=== PATIENT | male | born 1945 | race African-American/Black ===

== ENCOUNTER 2017-03-09 20:44 | Emergency (ER) | payer MEDICARE, MEDICAID ==
[~2017-03-09] VITALS: Ht 175.3 cm; Wt 75.0 kg
[~2017-03-09 20:44] MED LIST: DETROL; GABA300C PO; GABAPENTIN PO; HYDR-3513 PO; LISINOPRIL; SOMA; VICODIN; ZOLP10TA2 PO
[2017-03-09] MEDS ORDERED: PREDNISONE 20MG TABLET PO STA (22:37)
[2017-03-09] MEDS ORDERED: IPRATROPIUM/ALBUTEROL 0.5-3(2.5)MG/3ML NEB HHN ONE (22:45)
[2017-03-09 23:17] LABS: EOSINOPHILS % 6.5 % (0.0-5.0); HEMATOCRIT. 35.4 % (42.0-52.0); HEMOGLOBIN. 11.6 g/dL (14.0-18.0); LYMPHOCYTES % 43.8 % (20.0-50.0); MEAN CORPUSCULAR HEMOGLOBIN 29.8 pg (28.0-32.0); MEAN CORPUSCULAR HGB CONC 32.7 g/dL (31.0-37.0); MEAN CORPUSCULAR VOLUME 91.2 fL (80.0-94.0); MEAN PLATELET VOLUME 8.6 fl (7.4-10.4); MONOCYTES % 15.1 % (2.0-8.0); NEUTROPHILS % 33.6 % (40.0-76.0); PLATELET 180 x1000/uL (130-400); RED BLOOD CELL COUNT 3.89 mill/uL (4.7-6.1); RED CELL DISTRIBUTION WIDTH 16.1 % (11.6-14.6); WHITE BLOOD COUNT 3.5 x1000/uL (4.5-11.0)
[2017-03-09 23:20] LABS: DIFFERENTIAL COMMENT 1
[2017-03-09 23:23] LABS: INR 1.1
[2017-03-09 23:31] LABS: ALANINE AMINOTRANSFERASE 32 IU/L (13-61); ANION GAP 15; CALCIUM 8.3 mg/dL (8.5-10.1); CARBON DIOXIDE 27 mEq/L (21-32); CHLORIDE 102 mEq/L (98-107); ETHANOL BLOOD 185 mg/dL; INDEX HEMOLYSI 1 (1-3); INDEX ICTERIC 1 (1-4); INDEX LIPEMIC 1 (1-3); LIPASE 100 IU/L (73-393); UREA NITROGEN BLOOD 18 mg/dL (7-21); eGFR > 60 mL/min (>60)
[2017-03-10 00:32] LABS: CLARITY URINE CLEAR (CLEAR); COLOR URINE YELLOW (YELLOW); GLUCOSE URINE NEGATIVE (NEGATIVE); KETONES URINE NEGATIVE (NEGATIVE); LEUKOCYTE ESTERASE URINE 2+ (NEGATIVE); NITRITE URINE NEGATIVE (NEGATIVE); OCCULT BLOOD URINE NEGATIVE (NEGATIVE); PROTEIN URINE NEGATIVE (NEGATIVE); SPECIFIC GRAVITY URINE 1.007 (1.005-1.030); UROBILINOGEN URINE 0.2 E.U./dL (0.2-1.0)
[2017-03-10 01:05] LABS: *AMPHETAMINES SCREEN URINE NEGATIVE (NEGATIVE); *BARBITURATES SCREEN URINE NEGATIVE (NEGATIVE); *BENZODIAZEPINES SCREEN URINE NEGATIVE (NEGATIVE); *COCAINE SCREEN URINE NEGATIVE (NEGATIVE); CANNABINOID URINE SCREEN PRESUMTIVE POSITIVE (NEGATIVE); ECSTASY MDMA SCREEN URINE NEGATIVE (NEGATIVE); METHADONE URINE SCREEN NEGATIVE (NEGATIVE); OPIATES URINE SCREEN PRESUMTIVE POSITIVE (NEGATIVE); PHENCYCLIDINE URINE SCREEN NEGATIVE (NEGATIVE)
[2017-03-10] MEDS ORDERED: METHYLPREDNISOLONE SOD SUCC 125 MG/2 ML VIAL IM STA (01:46)
[2017-03-10] MEDS ORDERED: SODIUM CHLORIDE 0.9% 1,000 ML IV ONE (01:57)
[2017-03-10 02:03] LABS: SQUAMOUS EPITHELIAL CELL URINE FEW /lpf (RARE/1+); WBC URINE 15-25 /hpf (0-2)
[2017-03-10 02:04] LABS: BACTERIA URINE NONE SEEN; RBC URINE 0-2 /hpf (0-2)
[2017-03-10 02:24] LABS: AMMONIA 14 uMol/L (<32); INDEX HEMOLYSI 1 (1-3)
[2017-03-10 06:30] VITALS: BP 161/88
== END 2017-03-10 06:30 | disposition left against medical advice (07) ==
LOC: ER 20:44
DX: R55 Syncope and collapse (principal); J44.9 Chronic obstructive pulmonary disease, unspecified; E11.9 Type 2 diabetes mellitus without complications; I10 Essential (primary) hypertension; F17.210 Nicotine dependence, cigarettes, uncomplicated; Z79.899 Other long term (current) drug therapy
CPT/HCPCS: 36415; 70450; 71010; 73130; 80053; 80305; 81001; 82140; 83690; 84484; 85025; 85610; 93005; 94640; 99285; G0482; J7512; J7030; J7620

== ENCOUNTER 2018-11-14 12:58 | Inpatient (IN) | payer MEDICARE, MEDICAID ==
[~2018-11-14] VITALS: Ht 177.8 cm; Wt 64.4 kg
[2018-11-14] MEDS ORDERED: MORPHINE SULFATE 4 MG/ML CPJ (NOT FOR IM USE) IV STA (13:14)
[2018-11-14] MEDS ORDERED: ONDANSETRON HCL 4MG/2ML INJ IV STA (13:14)
[2018-11-14] MEDS ORDERED: SODIUM CHLORIDE 0.9% 1,000 ML IV ONE (13:14)
[2018-11-14] MEDS ORDERED: TETANUS, DIPHTHERIA, PERTUSSIS VAC/PF 0.5ML (>7YR OLD) IM ONE (13:15)
[2018-11-14 15:27] LABS: CHLORIDE 101 mEq/L (98-107)
[2018-11-14 15:28] LABS: BASOPHILS % 0.9 % (0.0-2.0); EOSINOPHILS % 5.2 % (0.0-5.0); HEMOGLOBIN. 10.4 g/dL (14.0-18.0); LYMPHOCYTES % 30.9 % (20.0-50.0); MEAN CORPUSCULAR HEMOGLOBIN 33.1 pg (28.0-32.0); MEAN CORPUSCULAR VOLUME 98.7 fL (80.0-94.0); MEAN PLATELET VOLUME 10.1 fl (7.4-10.4); MONOCYTES % 9.1 % (2.0-8.0); NEUTROPHILS % 53.9 % (40.0-76.0); PLATELET 99 x1000/uL (130-400); RED BLOOD CELL COUNT 3.15 mill/uL (4.7-6.1); RED CELL DISTRIBUTION WIDTH 17.8 % (11.6-14.6)
[2018-11-14 15:33] LABS: INR 1.2; PROTHROMBIN TIME 11.9 sec (9.1-11.1)
[2018-11-14] MEDS ORDERED: FENTANYL CITRATE/PF 50MCG/ML 2ML VIAL IV ONE (17:15)
[2018-11-14] MEDS ORDERED: GUAIFENESIN 200MG/10ML SUGAR FREE UDC PO PRN (23:00)
[2018-11-14] MEDS ORDERED: TEMAZEPAM 15MG CAPSULE PO PRN (23:00)
[2018-11-14] MEDS ORDERED: ENOXAPARIN 40MG/0.4ML SYR SUBCUT SCH (23:00)
[2018-11-14] MEDS ORDERED: MAGNESIUM/ALUMINUM HYDROXIDE/SIMETHICONE 30ML UDC PO PRN (23:00)
[2018-11-14] MEDS ORDERED: ACETAMINOPHEN 325MG TABLET PO PRN (23:00)
[2018-11-14] MEDS ORDERED: MAGNESIUM HYDROXIDE 400MG/5ML 30ML UDC PO PRN (23:00)
[2018-11-14] MEDS ORDERED: ONDANSETRON HCL 4MG/2ML INJ IV PRN (23:00)
[2018-11-14] MEDS ORDERED: CLONIDINE 0.1MG TABLET PO PRN (23:00)
[2018-11-15] MEDS: MORPHINE SULFATE 4 MG/ML CPJ (NOT FOR IM USE) IV PRN ×3 (01:34→14:58)
[2018-11-15] MEDS ORDERED: KETOROLAC 30MG/ML VIAL IV PRN (01:45)
[2018-11-15 03:00] VITALS: BP 152/82
[2018-11-15 03:15] VITALS: BP 152/82
[2018-11-15 04:00] VITALS: BP_SYST 82
[2018-11-15] MEDS ORDERED: TAMS0.4C31 PO (05:17)
[2018-11-15] MEDS ORDERED: DOCU-272 PO (05:17)
[2018-11-15] MEDS ORDERED: LINA5TAB PO (05:17)
[2018-11-15] MEDS ORDERED: ALBU90AE IH (05:17)
[2018-11-15] MEDS ORDERED: POTA20TA82 PO (05:17)
[2018-11-15] MEDS ORDERED: FERR325T6 PO (05:17)
[2018-11-15] MEDS ORDERED: FURO80TA3 PO (05:17)
[2018-11-15] MEDS ORDERED: LOPHC2 PO (05:17)
[2018-11-15] MEDS ORDERED: MIRT15TA7 PO (05:17)
[2018-11-15] MEDS ORDERED: ATOR10TA69 PO (05:17)
[2018-11-15] MEDS ORDERED: GABA-531 PO (05:17)
[2018-11-15] MEDS ORDERED: FINA5TAB11 PO (05:17)
[2018-11-15] MEDS ORDERED: RANI150C12 PO (05:17)
[2018-11-15] MEDS: SODIUM CHLORIDE 0.9% INJ 3ML FLUSH IVF SCH ×3 (06:23→22:00)
[2018-11-15] MEDS: GABAPENTIN 300MG CAPSULE PO SCH ×3 (06:23→20:55)
[2018-11-15 07:37] VITALS: BP 134/79
[2018-11-15] MEDS: DOCUSATE SODIUM 100MG CAPSULE PO SCH ×2 (09:17→17:00)
[2018-11-15] MEDS ORDERED: PNEUMOCOCCAL 23-VAL P-SAC VAC 0.5 ML IM ONE (12:00)
[2018-11-15] MEDS ORDERED: INFLUENZA VIRUS VACCINE(AFLURIA) 0.5ML SYR IM ONE (12:00)
[2018-11-15 12:18] VITALS: BP 122/73
[2018-11-15 16:09] VITALS: BP 133/75
[2018-11-16 00:01] VITALS: BP 169/93
[2018-11-16 04:00] VITALS: BP 104/79
[2018-11-16] MEDS: GABAPENTIN 300MG CAPSULE PO SCH ×3 (04:45→21:05)
[2018-11-16] MEDS: MORPHINE SULFATE 4 MG/ML CPJ (NOT FOR IM USE) IV PRN ×3 (06:28→20:35)
[2018-11-16] MEDS: SODIUM CHLORIDE 0.9% INJ 3ML FLUSH IVF SCH ×2 (06:29→13:15)
[2018-11-16 08:00] VITALS: BP 108/71
[2018-11-16] MEDS: DOCUSATE SODIUM 100MG CAPSULE PO SCH ×2 (09:03→18:03)
[2018-11-16] MEDS: HYDROCODONE/ACETAMINOPHEN 10/325MG TABLET PO PRN ×2 (09:04→18:02)
[2018-11-16 12:00] VITALS: BP 125/73
[2018-11-16 16:00] VITALS: BP 130/70
[2018-11-16] MEDS ORDERED: DOCUSATE SODIUM 100MG CAPSULE PO SCH (17:00)
[2018-11-16 17:51] LABS: BASOPHILS % 0.3 % (0.0-2.0); EOSINOPHILS % 5.9 % (0.0-5.0); HEMOGLOBIN. 8.6 g/dL (14.0-18.0); LYMPHOCYTES % 25.6 % (20.0-50.0); MEAN CORPUSCULAR HEMOGLOBIN 33.1 pg (28.0-32.0); MEAN CORPUSCULAR VOLUME 99.8 fL (80.0-94.0); MEAN PLATELET VOLUME 9.5 fl (7.4-10.4); NEUTROPHILS % 59.2 % (40.0-76.0); PLATELET 61 x1000/uL (130-400); RED CELL DISTRIBUTION WIDTH 17.5 % (11.6-14.6)
[2018-11-16 20:00] VITALS: BP 119/75
[2018-11-16] MEDS: DIPHENHYDRAMINE 50MG/ML VIAL IV PRN (21:03)
[2018-11-16] MEDS: POLYETHYLENE GLYCOL 3350 (17GM) 1 DOSE PACK PO SCH (21:34)
[2018-11-17] VITALS: BP 120/76
[2018-11-17] MEDS: MORPHINE SULFATE 4 MG/ML CPJ (NOT FOR IM USE) IV PRN ×4 (02:59→21:34)
[2018-11-17 04:00] VITALS: BP 147/88
[2018-11-17] MEDS: GABAPENTIN 300MG CAPSULE PO SCH ×3 (05:15→21:08)
[2018-11-17 05:59] LABS: CHLORIDE 97 mEq/L (98-107)
[2018-11-17 06:01] LABS: BASOPHILS % 0.6 % (0.0-2.0); EOSINOPHILS % 5.4 % (0.0-5.0); HEMATOCRIT. 25.7 % (42.0-52.0); HEMOGLOBIN. 8.8 g/dL (14.0-18.0); LYMPHOCYTES % 24.7 % (20.0-50.0); MEAN CORPUSCULAR HEMOGLOBIN 33.6 pg (28.0-32.0); MEAN CORPUSCULAR VOLUME 98.8 fL (80.0-94.0); MEAN PLATELET VOLUME 9.6 fl (7.4-10.4); MONOCYTES % 9.1 % (2.0-8.0); NEUTROPHILS % 60.2 % (40.0-76.0); PLATELET 67 x1000/uL (130-400)
[2018-11-17 06:35] LABS: FOLIC ACID (FOLATE) SERUM 10.4 ng/mL (>5.38)
[2018-11-17 08:00] VITALS: BP 123/66
[2018-11-17] MEDS: THIAMINE HCL 100MG TABLET PO SCH (08:41)
[2018-11-17] MEDS: FOLIC ACID 1MG TABLET PO SCH (08:41)
[2018-11-17] MEDS: DOCUSATE SODIUM 100MG CAPSULE PO SCH ×2 (08:42→16:50)
[2018-11-17] MEDS ORDERED: CYANOCOBALAMIN 1000MCG/ML VIAL IM NR (10:45)
[2018-11-17] MEDS: LEVOTHYROXINE SODIUM 88MCG TABLET PO SCH (10:51)
[2018-11-17] MEDS: MULTIVITAMINS,THER W-MINERALS TABLET PO SCH (10:51)
[2018-11-17 12:00] VITALS: BP 115/75
[2018-11-17] MEDS: LACTULOSE 20G/30ML UDC PO SCH ×2 (14:57→21:08)
[2018-11-17 16:44] VITALS: BP 123/74
[2018-11-17 20:00] VITALS: BP 150/87
[2018-11-17] MEDS: POLYETHYLENE GLYCOL 3350 (17GM) 1 DOSE PACK PO SCH (21:08)
[2018-11-17] MEDS: DIPHENHYDRAMINE 50MG/ML VIAL IV PRN (21:09)
[2018-11-18] VITALS: BP 116/62
[2018-11-18] MEDS: MORPHINE SULFATE 4 MG/ML CPJ (NOT FOR IM USE) IV PRN ×3 (03:41→13:31)
[2018-11-18 04:00] VITALS: BP 105/84
[2018-11-18 06:13] LABS: T4 FREE 1.37 ng/dL (0.76-1.46)
[2018-11-18] MEDS: LACTULOSE 20G/30ML UDC PO SCH ×2 (06:22→13:30)
[2018-11-18] MEDS: LEVOTHYROXINE SODIUM 88MCG TABLET PO SCH (06:32)
[2018-11-18] MEDS: GABAPENTIN 300MG CAPSULE PO SCH ×3 (06:32→21:25)
[2018-11-18] MEDS: DOCUSATE SODIUM 100MG CAPSULE PO SCH ×2 (09:06→17:08)
[2018-11-18] MEDS: FOLIC ACID 1MG TABLET PO SCH (09:06)
[2018-11-18] MEDS: THIAMINE HCL 100MG TABLET PO SCH (09:06)
[2018-11-18] MEDS: MULTIVITAMINS,THER W-MINERALS TABLET PO SCH (09:06)
[2018-11-18] MEDS: CYANOCOBALAMIN 1000MCG/ML VIAL IM SCH (09:07)
[2018-11-18] MEDS: OXYCODONE HCL 5MG TABLET PO SCH ×2 (17:07→21:26)
[2018-11-18] MEDS: POLYETHYLENE GLYCOL 3350 (17GM) 1 DOSE PACK PO SCH ×2 (21:27→21:34)
[2018-11-18] MEDS: SODIUM CHLORIDE 0.9% INJ 3ML FLUSH IVF SCH (21:27)
[2018-11-19] MEDS: OXYCODONE HCL 5MG TABLET PO SCH ×4 (06:21→22:42)
[2018-11-19] MEDS: LEVOTHYROXINE SODIUM 88MCG TABLET PO SCH (06:21)
[2018-11-19] MEDS: GABAPENTIN 300MG CAPSULE PO SCH ×3 (06:24→22:41)
[2018-11-19 08:00] VITALS: BP 98/55
[2018-11-19] MEDS: DOCUSATE SODIUM 100MG CAPSULE PO SCH (09:00)
[2018-11-19] MEDS ORDERED: LACTULOSE 20G/30ML UDC PO SCH (09:00)
[2018-11-19] MEDS: FOLIC ACID 1MG TABLET PO SCH (09:50)
[2018-11-19] MEDS: CYANOCOBALAMIN 1000MCG/ML VIAL IM SCH (09:50)
[2018-11-19] MEDS: THIAMINE HCL 100MG TABLET PO SCH (09:50)
[2018-11-19] MEDS: MULTIVITAMINS,THER W-MINERALS TABLET PO SCH (09:50)
[2018-11-19] MEDS: MORPHINE SULFATE 4 MG/ML CPJ (NOT FOR IM USE) IV PRN ×3 (09:57→19:57)
[2018-11-19] MEDS ORDERED: DIGOXIN 500MCG/2ML AMP IV NR (11:45)
[2018-11-19] MEDS ORDERED: SODIUM CHLORIDE 0.9% 500 ML IV ONE (11:45)
[2018-11-19 12:00] VITALS: BP 98/56
[2018-11-19 16:00] VITALS: BP 97/51
[2018-11-19] MEDS: SODIUM CHLORIDE 0.9% INJ 3ML FLUSH IVF SCH ×2 (17:01→22:38)
[2018-11-19] MEDS ORDERED: DIGOXIN 250MCG TABLET PO SCH (19:30)
[2018-11-19 19:52] VITALS: BP 110/64
[2018-11-19] MEDS: POTASSIUM CHLORIDE 20MEQ TABLET SR PO SCH ×2 (22:41→23:00)
[2018-11-19] MEDS ORDERED: MAGNESIUM 1 G PREMIX 100 ML IV NR (23:00)
[2018-11-20 00:30] VITALS: BP 114/60
[2018-11-20] MEDS: POTASSIUM CHLORIDE 20MEQ TABLET SR PO SCH (00:33)
[2018-11-20 04:00] VITALS: BP 105/66
[2018-11-20] MEDS: OXYCODONE HCL 5MG TABLET PO SCH ×4 (04:00→21:22)
[2018-11-20] MEDS: SODIUM CHLORIDE 0.9% INJ 3ML FLUSH IVF SCH ×3 (05:45→21:22)
[2018-11-20] MEDS: GABAPENTIN 300MG CAPSULE PO SCH ×4 (05:45→22:00)
[2018-11-20 08:00] VITALS: BP 115/70
[2018-11-20] MEDS: LEVOTHYROXINE SODIUM 88MCG TABLET PO SCH (08:40)
[2018-11-20] MEDS: CYANOCOBALAMIN 1000MCG/ML VIAL IM SCH (08:46)
[2018-11-20] MEDS: FOLIC ACID 1MG TABLET PO SCH (08:46)
[2018-11-20] MEDS: MULTIVITAMINS,THER W-MINERALS TABLET PO SCH (08:46)
[2018-11-20] MEDS: THIAMINE HCL 100MG TABLET PO SCH (08:50)
[2018-11-20 12:00] VITALS: BP 122/71
[2018-11-20 16:00] VITALS: BP 119/72
[2018-11-20] MEDS: DIGOXIN 125MCG TABLET PO SCH (18:33)
[2018-11-20 20:00] VITALS: BP 135/60
[2018-11-21] VITALS (7 sets, daily range): BP systolic 116–142; BP diastolic 56–81
[2018-11-21] MEDS: OXYCODONE HCL 5MG TABLET PO SCH ×4 (04:56→22:10)
[2018-11-21] MEDS: GABAPENTIN 300MG CAPSULE PO SCH ×3 (04:56→22:10)
[2018-11-21] MEDS: SODIUM CHLORIDE 0.9% INJ 3ML FLUSH IVF SCH ×3 (04:56→22:10)
[2018-11-21 07:39] LABS: HEMATOCRIT. 24.3 % (42.0-52.0); HEMOGLOBIN. 8.2 g/dL (14.0-18.0); MEAN CORPUSCULAR VOLUME 98.3 fL (80.0-94.0); MEAN PLATELET VOLUME 9.2 fl (7.4-10.4); PLATELET 79 x1000/uL (130-400); RED BLOOD CELL COUNT 2.48 mill/uL (4.7-6.1); RED CELL DISTRIBUTION WIDTH 17.1 % (11.6-14.6)
[2018-11-21] MEDS: LEVOTHYROXINE SODIUM 88MCG TABLET PO SCH (07:40)
[2018-11-21 09:21] LABS: CHLORIDE 102 mEq/L (98-107)
[2018-11-21 09:27] LABS: PHOSPHORUS 2.3 mg/dL (2.5-4.9)
[2018-11-21 09:45] LABS: DIGOXIN 0.8 ng/mL (0.9-2.0)
[2018-11-21] MEDS: FOLIC ACID 1MG TABLET PO SCH (09:48)
[2018-11-21] MEDS: CYANOCOBALAMIN 1000MCG/ML VIAL IM SCH (09:48)
[2018-11-21] MEDS: THIAMINE HCL 100MG TABLET PO SCH (09:49)
[2018-11-21] MEDS: MULTIVITAMINS,THER W-MINERALS TABLET PO SCH (09:49)
[2018-11-21 14:42] LABS: PLATELET ESTIMATE DECREASED
[2018-11-21] MEDS: DIGOXIN 125MCG TABLET PO SCH (17:13)
[2018-11-22] VITALS: BP 125/64
[2018-11-22 04:00] VITALS: BP 136/84
[2018-11-22] MEDS: GABAPENTIN 300MG CAPSULE PO SCH ×3 (04:51→21:35)
[2018-11-22] MEDS: OXYCODONE HCL 5MG TABLET PO SCH ×4 (04:52→21:36)
[2018-11-22] MEDS: SODIUM CHLORIDE 0.9% INJ 3ML FLUSH IVF SCH ×3 (04:53→21:35)
[2018-11-22 08:00] VITALS: BP 130/75
[2018-11-22] MEDS: LEVOTHYROXINE SODIUM 88MCG TABLET PO SCH (08:30)
[2018-11-22] MEDS: MULTIVITAMINS,THER W-MINERALS TABLET PO SCH (08:58)
[2018-11-22] MEDS: FOLIC ACID 1MG TABLET PO SCH (08:59)
[2018-11-22] MEDS: THIAMINE HCL 100MG TABLET PO SCH (08:59)
[2018-11-22] MEDS: CYANOCOBALAMIN 1000MCG/ML VIAL IM SCH (09:00)
[2018-11-22 12:00] VITALS: BP 121/71
[2018-11-22 16:00] VITALS: BP 144/73
[2018-11-22] MEDS: DIGOXIN 125MCG TABLET PO SCH (18:18)
[2018-11-22 20:00] VITALS: BP 151/80
[2018-11-23] VITALS (7 sets, daily range): BP systolic 124–150; BP diastolic 63–84
[2018-11-23] MEDS: OXYCODONE HCL 5MG TABLET PO SCH ×3 (04:28→15:13)
[2018-11-23] MEDS: SODIUM CHLORIDE 0.9% INJ 3ML FLUSH IVF SCH ×2 (06:06→14:19)
[2018-11-23] MEDS: GABAPENTIN 300MG CAPSULE PO SCH ×2 (06:07→15:13)
[2018-11-23] MEDS: LEVOTHYROXINE SODIUM 88MCG TABLET PO SCH (07:40)
[2018-11-23] MEDS: MULTIVITAMINS,THER W-MINERALS TABLET PO SCH (09:52)
[2018-11-23] MEDS: FOLIC ACID 1MG TABLET PO SCH (09:52)
[2018-11-23] MEDS: THIAMINE HCL 100MG TABLET PO SCH (09:52)
[2018-11-23] MEDS: CYANOCOBALAMIN 1000MCG/ML VIAL IM SCH (09:53)
[2018-11-23] MEDS: DIGOXIN 125MCG TABLET PO SCH (18:00)
[2018-11-23] MEDS ORDERED: QUETIAPINE FUMARATE 50MG TABLET PO SCH (21:00)
== END 2018-11-23 21:30 | DRG 73 ==
LOC: ER 13:18 → 7WST 17:56 → EDBEDREQTM 18:01 → EDBEDREQ 18:01 → ENRESERV 11-15 01:53
PROVIDERS: ADMIT Internal Medicine; ATTEND Internal Medicine
DX: G90.8 Other disorders of autonomic nervous system (principal); E43 Unspecified severe protein-calorie malnutrition; S32.512A Fracture of superior rim of left pubis, initial encounter for closed fracture; D61.818 Other pancytopenia; I47.1 Supraventricular tachycardia; D18.00 Hemangioma unspecified site; E03.9 Hypothyroidism, unspecified; E11.42 Type 2 diabetes mellitus with diabetic polyneuropathy; E87.6 Hypokalemia; I10 Essential (primary) hypertension; J44.9 Chronic obstructive pulmonary disease, unspecified; M17.10 Unilateral primary osteoarthritis, unspecified knee; M47.816 Spondylosis without myelopathy or radiculopathy, lumbar region; M48.02 Spinal stenosis, cervical region; R26.9 Unspecified abnormalities of gait and mobility; M48.061 Spinal stenosis, lumbar region without neurogenic claudication; M50.30 Other cervical disc degeneration, unspecified cervical region; M51.36 Other intervertebral disc degeneration, lumbar region; M51.37 Other intervertebral disc degeneration, lumbosacral region; Z96.643 Presence of artificial hip joint, bilateral; W01.0XXA Fall on same level from slipping, tripping and stumbling without subsequent striking against object, initial encounter; Y93.89 Activity, other specified; Y92.098 Other place in other non-institutional residence as the place of occurrence of the external cause; Y99.8 Other external cause status; Z72.0 Tobacco use; Z79.899 Other long term (current) drug therapy
CPT/HCPCS: 36415; 70551; 71045; 72141; 72146; 72148; 73502; 73552; 73700; 80048; 80051; 80162; 82140; 82607; 82746; 83735; 83880; 84100; 84439; 84443; 84481; 84484; 85651; 86140; 86850; 86900; 90471; 90686; 90715; 90732; 92523; 93005; 93306; 93880; 93970; 96361; 96374; 96375; 97162; 97165; 97530; 97535; 99285; J1160; J1200; J1885; J2270; J2405; J3010; J3420; J3475; J7030; J7040

== ENCOUNTER 2018-12-23 20:22 | Inpatient (IN) | payer MEDICAID, MEDICARE ==
[~2018-12-23] VITALS: Ht 180.3 cm; Wt 70.1 kg
[~2018-12-23 20:22] MED LIST changes: +ALBU90AE IH; +ATOR10TA69 PO; -DETROL; +DOCU-272 PO; +FERR325T6 PO; +FINA5TAB11 PO; +FURO80TA3 PO; +GABA-531 PO; -GABA300C PO; -GABAPENTIN PO; -HYDR-3513 PO; +LINA5TAB PO; -LISINOPRIL; +LOPHC2 PO; +MIRT15TA7 PO; +POTA20TA82 PO; +RANI150C12 PO; -SOMA; +TAMS0.4C31 PO; -VICODIN; -ZOLP10TA2 PO
[2018-12-23] MEDS ORDERED: PIPERACILLIN/TAZ 3.375G PREMIX 50 ML IV ONE (22:30)
[2018-12-23] MEDS ORDERED: ONDANSETRON HCL 4MG/2ML INJ IV STA (22:30)
[2018-12-23] MEDS ORDERED: VANCOMYCIN 1 G PREMIX 200 ML IV SCH (22:30)
[2018-12-23] MEDS ORDERED: MORPHINE SULFATE 4 MG/ML CPJ (NOT FOR IM USE) IV STA (22:30)
[2018-12-23 23:35] LABS: BASOPHILS % 0.2 % (0.0-2.0); EOSINOPHILS % 5.8 % (0.0-5.0); HEMATOCRIT. 30.8 % (42.0-52.0); LYMPHOCYTES % 47.5 % (20.0-50.0); MEAN CORPUSCULAR HEMOGLOBIN 30.6 pg (28.0-32.0); MEAN CORPUSCULAR VOLUME 94.2 fL (80.0-94.0); MEAN PLATELET VOLUME 8.4 fl (7.4-10.4); MONOCYTES % 8.6 % (2.0-8.0); NEUTROPHILS % 37.9 % (40.0-76.0); PLATELET 150 x1000/uL (130-400); RED BLOOD CELL COUNT 3.27 mill/uL (4.7-6.1); RED CELL DISTRIBUTION WIDTH 20.4 % (11.6-14.6)
[2018-12-23 23:38] LABS: CHLORIDE 101 mEq/L (98-107)
[2018-12-23 23:39] LABS: INR 1.1; PARTIAL THROMBOPLASTIN TIME 26.3 sec (23.4-31.0); PROTHROMBIN TIME 11.3 sec (9.1-11.1)
[2018-12-23 23:44] LABS: ETHANOL BLOOD 148 mg/dL
[2018-12-24] MEDS ORDERED: KETOROLAC 30MG/ML VIAL IV ONE (00:30)
[2018-12-24 00:48] LABS: *AMPHETAMINES SCREEN URINE NEGATIVE (NEGATIVE); *BARBITURATES SCREEN URINE NEGATIVE (NEGATIVE); CANNABINOID URINE SCREEN PRESUMTIVE POSITIVE (NEGATIVE); METHADONE URINE SCREEN NEGATIVE (NEGATIVE); OPIATES URINE SCREEN PRESUMTIVE POSITIVE (NEGATIVE); PHENCYCLIDINE URINE SCREEN NEGATIVE (NEGATIVE)
[2018-12-24 00:50] LABS: *BENZODIAZEPINES SCREEN URINE NEGATIVE (NEGATIVE); *COCAINE SCREEN URINE NEGATIVE (NEGATIVE)
[2018-12-24 00:53] LABS: CLARITY URINE CLEAR (CLEAR); COLOR URINE YELLOW (YELLOW); KETONES URINE NEGATIVE (NEGATIVE); LEUKOCYTE ESTERASE URINE NEGATIVE (NEGATIVE); NITRITE URINE NEGATIVE (NEGATIVE); OCCULT BLOOD URINE NEGATIVE (NEGATIVE); PROTEIN URINE NEGATIVE (NEGATIVE); SPECIFIC GRAVITY URINE 1.007 (1.005-1.030); UROBILINOGEN URINE 0.2 E.U./dL (0.2-1.0)
[2018-12-24 04:00] VITALS: BP 153/81
[2018-12-24] MEDS ORDERED: ONDANSETRON HCL 4MG/2ML INJ IV PRN (04:45)
[2018-12-24] MEDS ORDERED: LORAZEPAM 2MG/ML CPJ IV PRN (04:45)
[2018-12-24] MEDS ORDERED: FOLIC ACID 1 MG, MVI, ADULT NO.1 10 ML in DEXTROSE 5% WATER 1,000 ML IV ONE ×3 (05:00)
[2018-12-24 07:53] VITALS: BP 128/68
[2018-12-24] MEDS: ENOXAPARIN 40MG/0.4ML SYR SUBCUT SCH (08:01)
[2018-12-24] MEDS: HYDROCODONE/ACETAMINOPHEN 5/325MG TABLET PO PRN ×3 (08:01→18:18)
[2018-12-24 08:52] LABS: BASOPHILS % 0.5 % (0.0-2.0); EOSINOPHILS % 8.5 % (0.0-5.0); HEMOGLOBIN. 10.5 g/dL (14.0-18.0); LYMPHOCYTES % 40.7 % (20.0-50.0); MEAN CORPUSCULAR HEMOGLOBIN 30.2 pg (28.0-32.0); MEAN CORPUSCULAR VOLUME 94.8 fL (80.0-94.0); MEAN PLATELET VOLUME 8.3 fl (7.4-10.4); MONOCYTES % 11.1 % (2.0-8.0); NEUTROPHILS % 39.2 % (40.0-76.0); PLATELET 132 x1000/uL (130-400); RED BLOOD CELL COUNT 3.48 mill/uL (4.7-6.1); RED CELL DISTRIBUTION WIDTH 20.1 % (11.6-14.6)
[2018-12-24 09:09] LABS: CHLORIDE 96 mEq/L (98-107)
[2018-12-24] MEDS ORDERED: POTASSIUM CHLORIDE 20MEQ TABLET SR PO NR (13:45)
[2018-12-24] MEDS ORDERED: DEXTROSE 50% WATER 50ML SYRINGE IV PRN (14:00)
[2018-12-24 15:04] LABS: BG BASE EXCESS 7.2 mmol/L (-2.0-2.0); BG CARBOXYHEMOGLOBIN 1.1 % (0.5-1.5); BG DEOXYHEMOGLOBIN 7.4 % (0.0-5.0); BG FRACTION INSPIRED OXYGEN 21; BG HCO3 ACT 31.8 mmol/L (22.0-26.0); BG METHEMOGLOBIN 0.3 % (0.0-1.5); BG OXYGEN SATURATION 92.5 % (92.0-98.5); BG OXYHEMOGLOBIN 91.2 % (94.0-97.0); BG PCO2 45.2 mmHg (35.0-45.0); BG PH 7.465 (7.350-7.450); BG PO2 66.9 mmHg (75.0-100.0); BG SAMPLE SITE RIGHT RADIAL; BG TOTAL HEMOGLOBIN 10.6 g/dL (12.0-18.0); BG VENT MODE ROOM AIR
[2018-12-24 16:00] VITALS: BP 149/74
[2018-12-24] MEDS ORDERED: FOLIC ACID 1 MG, MVI, ADULT NO.1 10 ML in DEXTROSE 5% WATER 1,000 ML IV SCH ×3 (16:00)
[2018-12-24] MEDS ORDERED: POTASSIUM CHLORIDE 20MEQ TABLET SR PO SCH (17:00)
[2018-12-24] MEDS: VANCOMYCIN 1 G PREMIX 200 ML IV SCH (17:29)
[2018-12-24] MEDS: TAMSULOSIN HCL 0.4MG SR CAPSULE PO SCH (17:34)
[2018-12-24] MEDS: GABAPENTIN 300MG CAPSULE PO SCH (17:36)
[2018-12-24] MEDS: THIAMINE HCL 100MG TABLET PO SCH (17:36)
[2018-12-24] MEDS: FUROSEMIDE 40MG TABLET PO SCH (17:36)
[2018-12-24] MEDS: INSULIN LISPRO 100 UNITS/ML SUBCUT SCH ×2 (17:47→21:09)
[2018-12-24] MEDS: BLOOD SUGAR DIAGNOSTIC STRIP TEST SCH ×2 (17:47→21:07)
[2018-12-24 20:00] VITALS: BP 125/74
[2018-12-24] MEDS: METOPROLOL TARTRATE 50MG TABLET PO SCH (21:07)
[2018-12-24] MEDS: POTASSIUM CHLORIDE 20MEQ TABLET SR PO SCH (21:07)
[2018-12-24] MEDS: ATORVASTATIN CALCIUM 10MG TABLET PO SCH (21:07)
[2018-12-24] MEDS: MIRTAZAPINE 15MG TABLET PO SCH (21:07)
[2018-12-24] MEDS: FAMOTIDINE 20MG TABLET PO SCH (21:07)
[2018-12-24 23:48] VITALS: BP 147/81
[2018-12-25] MEDS: HYDROCODONE/ACETAMINOPHEN 5/325MG TABLET PO PRN ×2 (03:06→10:05)
[2018-12-25] MEDS: VANCOMYCIN 1 G PREMIX 200 ML IV SCH ×2 (03:11→18:04)
[2018-12-25 04:00] VITALS: BP 144/70
[2018-12-25 06:38] LABS: BASOPHILS % 0.5 % (0.0-2.0); EOSINOPHILS % 7.5 % (0.0-5.0); HEMATOCRIT. 31.1 % (42.0-52.0); HEMOGLOBIN. 10.2 g/dL (14.0-18.0); LYMPHOCYTES % 23.7 % (20.0-50.0); MEAN CORPUSCULAR HEMOGLOBIN 30.9 pg (28.0-32.0); MEAN CORPUSCULAR VOLUME 94.1 fL (80.0-94.0); MEAN PLATELET VOLUME 8.7 fl (7.4-10.4); MONOCYTES % 9.6 % (2.0-8.0); NEUTROPHILS % 58.7 % (40.0-76.0); PLATELET 120 x1000/uL (130-400); RED CELL DISTRIBUTION WIDTH 19.4 % (11.6-14.6)
[2018-12-25] MEDS: BLOOD SUGAR DIAGNOSTIC STRIP TEST SCH ×4 (06:42→20:33)
[2018-12-25 07:22] LABS: CHLORIDE 97 mEq/L (98-107)
[2018-12-25] MEDS: INSULIN LISPRO 100 UNITS/ML SUBCUT SCH ×4 (07:50→20:34)
[2018-12-25 08:00] VITALS: BP 137/78
[2018-12-25] MEDS: METOPROLOL TARTRATE 50MG TABLET PO SCH (09:00)
[2018-12-25] MEDS: FUROSEMIDE 40MG TABLET PO SCH (10:03)
[2018-12-25] MEDS: ENOXAPARIN 40MG/0.4ML SYR SUBCUT SCH (10:03)
[2018-12-25] MEDS: FINASTERIDE 5MG TABLET PO SCH (10:04)
[2018-12-25] MEDS: THIAMINE HCL 100MG TABLET PO SCH (10:04)
[2018-12-25] MEDS: POTASSIUM CHLORIDE 20MEQ TABLET SR PO SCH ×2 (10:04→16:27)
[2018-12-25] MEDS: GABAPENTIN 300MG CAPSULE PO SCH ×2 (10:04→16:27)
[2018-12-25] MEDS: TAMSULOSIN HCL 0.4MG SR CAPSULE PO SCH ×2 (10:04→16:27)
[2018-12-25] MEDS: FAMOTIDINE 20MG TABLET PO SCH ×2 (10:05→20:33)
[2018-12-25] MEDS: FOLIC ACID 1 MG, MVI, ADULT NO.1 10 ML in DEXTROSE 5% WATER 1,000 ML IV SCH ×3 (11:49)
[2018-12-25 12:00] VITALS: BP 143/79
[2018-12-25] MEDS: HYDROCODONE/APAP 7.5/325MG 1 TAB TABLET PO PRN ×2 (14:09→20:33)
[2018-12-25 16:00] VITALS: BP 161/83
[2018-12-25] MEDS: DILTIAZEM HCL 30MG TABLET PO SCH (18:19)
[2018-12-25 20:00] VITALS: BP 145/84
[2018-12-25] MEDS: MIRTAZAPINE 15MG TABLET PO SCH (20:33)
[2018-12-25] MEDS: ATORVASTATIN CALCIUM 10MG TABLET PO SCH (20:33)
[2018-12-25] MEDS ORDERED: MAGNESIUM 1 G PREMIX 100 ML IV NR (22:00)
[2018-12-25 23:02] LABS: BASOPHILS % 0.4 % (0.0-2.0); EOSINOPHILS % 6.6 % (0.0-5.0); HEMATOCRIT. 30.2 % (42.0-52.0); LYMPHOCYTES % 28.1 % (20.0-50.0); MEAN CORPUSCULAR HEMOGLOBIN 31.1 pg (28.0-32.0); MEAN CORPUSCULAR VOLUME 94.4 fL (80.0-94.0); MEAN PLATELET VOLUME 8.6 fl (7.4-10.4); MONOCYTES % 8.8 % (2.0-8.0); NEUTROPHILS % 56.1 % (40.0-76.0); PLATELET 114 x1000/uL (130-400); RED CELL DISTRIBUTION WIDTH 19.6 % (11.6-14.6)
[2018-12-25 23:10] LABS: CHLORIDE 97 mEq/L (98-107)
[2018-12-26] VITALS: BP 143/71
[2018-12-26 04:00] VITALS: BP 146/77
[2018-12-26] MEDS: HYDROCODONE/APAP 7.5/325MG 1 TAB TABLET PO PRN ×3 (04:13→16:27)
[2018-12-26] MEDS: DILTIAZEM HCL 30MG TABLET PO SCH ×4 (05:55→17:36)
[2018-12-26] MEDS: VANCOMYCIN 1 G PREMIX 200 ML IV SCH (05:55)
[2018-12-26 06:21] LABS: CHLORIDE 99 mEq/L (98-107)
[2018-12-26 06:23] LABS: BASOPHILS % 0.5 % (0.0-2.0); EOSINOPHILS % 8.1 % (0.0-5.0); HEMATOCRIT. 30.3 % (42.0-52.0); HEMOGLOBIN. 9.9 g/dL (14.0-18.0); MEAN CORPUSCULAR HEMOGLOBIN 30.9 pg (28.0-32.0); MEAN CORPUSCULAR VOLUME 94.1 fL (80.0-94.0); MONOCYTES % 9.6 % (2.0-8.0); NEUTROPHILS % 55.8 % (40.0-76.0); PLATELET 121 x1000/uL (130-400); RED BLOOD CELL COUNT 3.22 mill/uL (4.7-6.1); RED CELL DISTRIBUTION WIDTH 19.9 % (11.6-14.6)
[2018-12-26] MEDS: BLOOD SUGAR DIAGNOSTIC STRIP TEST SCH ×4 (07:20→21:00)
[2018-12-26] MEDS: INSULIN LISPRO 100 UNITS/ML SUBCUT SCH ×4 (07:39→21:00)
[2018-12-26 08:00] VITALS: BP 138/72
[2018-12-26] MEDS: FOLIC ACID 1 MG, MVI, ADULT NO.1 10 ML in DEXTROSE 5% WATER 1,000 ML IV SCH ×6 (09:00→12:00)
[2018-12-26] MEDS: TAMSULOSIN HCL 0.4MG SR CAPSULE PO SCH ×2 (09:03→16:27)
[2018-12-26] MEDS: POTASSIUM CHLORIDE 20MEQ TABLET SR PO SCH ×2 (09:03→16:27)
[2018-12-26] MEDS: GABAPENTIN 300MG CAPSULE PO SCH ×2 (09:03→16:26)
[2018-12-26] MEDS: ENOXAPARIN 40MG/0.4ML SYR SUBCUT SCH (09:04)
[2018-12-26] MEDS: ASPIRIN 81MG EC TABLET PO SCH (09:04)
[2018-12-26] MEDS: METOPROLOL TARTRATE 25MG TABLET PO SCH (09:04)
[2018-12-26] MEDS: FAMOTIDINE 20MG TABLET PO SCH ×2 (09:04→22:14)
[2018-12-26] MEDS: THIAMINE HCL 100MG TABLET PO SCH (09:04)
[2018-12-26] MEDS: FINASTERIDE 5MG TABLET PO SCH (09:13)
[2018-12-26 12:00] VITALS: BP 155/80
[2018-12-26 16:00] VITALS: BP 140/83
[2018-12-26 20:00] VITALS: BP 145/76
[2018-12-26] MEDS: ATORVASTATIN CALCIUM 10MG TABLET PO SCH (22:14)
[2018-12-26] MEDS: MIRTAZAPINE 15MG TABLET PO SCH (22:15)
[2018-12-27] VITALS (9 sets, daily range): BP systolic 141–165; BP diastolic 71–88
[2018-12-27] MEDS: DILTIAZEM HCL 30MG TABLET PO SCH ×2 (03:07→06:00)
[2018-12-27] MEDS: HYDROCODONE/APAP 7.5/325MG 1 TAB TABLET PO PRN ×3 (03:38→18:22)
[2018-12-27] MEDS: VANCOMYCIN 1 G PREMIX 200 ML IV SCH ×2 (04:22→21:25)
[2018-12-27] MEDS: BLOOD SUGAR DIAGNOSTIC STRIP TEST SCH ×4 (06:54→21:00)
[2018-12-27] MEDS: INSULIN LISPRO 100 UNITS/ML SUBCUT SCH ×4 (07:33→21:00)
[2018-12-27] MEDS: ASPIRIN 81MG EC TABLET PO SCH (09:18)
[2018-12-27] MEDS: TAMSULOSIN HCL 0.4MG SR CAPSULE PO SCH ×2 (09:18→18:17)
[2018-12-27] MEDS: POTASSIUM CHLORIDE 20MEQ TABLET SR PO SCH ×2 (09:18→18:17)
[2018-12-27] MEDS: METOPROLOL TARTRATE 25MG TABLET PO SCH (09:20)
[2018-12-27] MEDS: FOLIC ACID 1 MG, MVI, ADULT NO.1 10 ML in DEXTROSE 5% WATER 1,000 ML IV SCH ×3 (09:20)
[2018-12-27] MEDS: GABAPENTIN 300MG CAPSULE PO SCH ×2 (09:20→18:17)
[2018-12-27] MEDS: FINASTERIDE 5MG TABLET PO SCH (09:20)
[2018-12-27] MEDS: FAMOTIDINE 20MG TABLET PO SCH ×2 (09:20→21:18)
[2018-12-27] MEDS: ENOXAPARIN 40MG/0.4ML SYR SUBCUT SCH (09:22)
[2018-12-27] MEDS ORDERED: ENALAPRIL 2.5MG/2ML VIAL 2ML IV PRN (14:00)
[2018-12-27] MEDS ORDERED: ENALAPRIL 1.25MG/ML VIAL 1ML IV NR (14:00)
[2018-12-27] MEDS ORDERED: ENALAPRIL 1.25MG/ML VIAL 1ML IV PRN (14:15)
[2018-12-27] MEDS: MIRTAZAPINE 15MG TABLET PO SCH (21:18)
[2018-12-27] MEDS: ATORVASTATIN CALCIUM 10MG TABLET PO SCH (21:18)
[2018-12-28] MEDS: HYDROCODONE/APAP 7.5/325MG 1 TAB TABLET PO PRN ×2 (02:37→10:26)
[2018-12-28 04:00] VITALS: BP 154/76
[2018-12-28] MEDS: INSULIN LISPRO 100 UNITS/ML SUBCUT SCH ×2 (07:40→12:31)
[2018-12-28] MEDS: BLOOD SUGAR DIAGNOSTIC STRIP TEST SCH ×2 (07:40→12:31)
[2018-12-28 08:00] VITALS: BP 158/78
[2018-12-28] MEDS: METOPROLOL TARTRATE 25MG TABLET PO SCH (08:44)
[2018-12-28] MEDS: FAMOTIDINE 20MG TABLET PO SCH (08:55)
[2018-12-28] MEDS: FINASTERIDE 5MG TABLET PO SCH (08:55)
[2018-12-28] MEDS: ASPIRIN 81MG EC TABLET PO SCH (08:55)
[2018-12-28] MEDS: POTASSIUM CHLORIDE 20MEQ TABLET SR PO SCH (08:55)
[2018-12-28] MEDS: TAMSULOSIN HCL 0.4MG SR CAPSULE PO SCH (08:55)
[2018-12-28] MEDS: ENOXAPARIN 40MG/0.4ML SYR SUBCUT SCH (08:56)
[2018-12-28] MEDS: GABAPENTIN 300MG CAPSULE PO SCH (08:56)
[2018-12-28 12:28] VITALS: BP 142/73
[2018-12-28 13:47] VITALS: BP 142/73
== END 2018-12-28 15:05 | disposition home or self-care (01) | DRG 602 ==
LOC: ER 20:22 → 6WST 12-24 00:04 → EDBEDREQ 12-24 00:10 → EDBEDREQTM 12-24 00:10 → EDBEDREQDT 12-24 00:10 → ENRESERV 12-24 01:48
PROVIDERS: ADMIT Internal Medicine; ATTEND Internal Medicine
DX: L03.115 Cellulitis of right lower limb (principal); J18.9 Pneumonia, unspecified organism; D61.818 Other pancytopenia; R65.10 Systemic inflammatory response syndrome (SIRS) of non-infectious origin without acute organ dysfunction; I47.2 Ventricular tachycardia; J44.0 Chronic obstructive pulmonary disease with (acute) lower respiratory infection; E87.3 Alkalosis; L03.116 Cellulitis of left lower limb; E03.9 Hypothyroidism, unspecified; N40.0 Benign prostatic hyperplasia without lower urinary tract symptoms; F17.210 Nicotine dependence, cigarettes, uncomplicated; E78.5 Hyperlipidemia, unspecified; R09.02 Hypoxemia; F10.229 Alcohol dependence with intoxication, unspecified; I11.9 Hypertensive heart disease without heart failure; E11.40 Type 2 diabetes mellitus with diabetic neuropathy, unspecified; M50.80 Other cervical disc disorders, unspecified cervical region; M48.02 Spinal stenosis, cervical region; I87.8 Other specified disorders of veins; M19.90 Unspecified osteoarthritis, unspecified site; F32.9 Major depressive disorder, single episode, unspecified; F29 Unspecified psychosis not due to a substance or known physiological condition; R00.1 Bradycardia, unspecified; Z96.643 Presence of artificial hip joint, bilateral; Z91.81 History of falling
CPT/HCPCS: 36415; 36600; 71045; 80048; 80202; 80305; 82375; 82805; 82962; 83036; 83525; 83605; 83735; 83880; 84484; 93005; 93923; 93970; 96374; 97162; 99285; C1893; J1650; J1815; J1885; J2270; J2405; J2543; J3370; J3475; J3490; J7040; J7050; J7070

== ENCOUNTER 2019-01-15 16:08 | Emergency (ER) | payer MEDICARE ==
[~2019-01-15] VITALS: Ht 180.3 cm; Wt 80.0 kg
[2019-01-15 16:15] VITALS: BP 136/85
== END 2019-01-15 19:14 | disposition left against medical advice (07) ==
LOC: ER 16:31
DX: M79.604 Pain in right leg (principal); Z53.21 Procedure and treatment not carried out due to patient leaving prior to being seen by health care provider

== ENCOUNTER 2020-04-28 23:32 | Emergency (ER) | payer MEDICARE ==
[~2020-04-28] VITALS: Ht 182.9 cm; Wt 80.0 kg
[2020-04-29 01:32] VITALS: BP 144/84
== END 2020-04-29 01:40 | disposition home or self-care (01) ==
LOC: ER 23:32
DX: T51.0X1A Toxic effect of ethanol, accidental (unintentional), initial encounter (principal); G92 Toxic encephalopathy; F10.129 Alcohol abuse with intoxication, unspecified; Y90.9 Presence of alcohol in blood, level not specified; Y92.521 Bus station as the place of occurrence of the external cause; R03.0 Elevated blood-pressure reading, without diagnosis of hypertension
CPT/HCPCS: 99283

== ENCOUNTER 2022-02-19 15:50 | Inpatient (IN) | payer MEDICARE, MEDICAID ==
[~2022-02-19] VITALS: Ht 180.3 cm; Wt 68.5 kg
[~2022-02-19 15:50] MED LIST changes: +DOCU-268 PO; -DOCU-272 PO; -GABA-531 PO; +GABA-532 PO
[2022-02-19] MEDS ORDERED: SODIUM CHLORIDE 0.9% 250 ML IV ONE (16:15)
[2022-02-19 16:24] LABS: HEMATOCRIT. 34.2 % (42.0-52.0); HEMOGLOBIN. 11.1 g/dL (14.0-18.0); PLATELET 191 x1000/uL (130-400); RED BLOOD CELL COUNT 3.98 mill/uL (4.7-6.1); RED CELL DISTRIBUTION WIDTH 24.1 % (11.6-14.6)
[2022-02-19 16:29] LABS: CHLORIDE 108 mEq/L (98-107)
[2022-02-19 17:03] LABS: PLATELET ESTIMATE NORMAL
[2022-02-19] MEDS ORDERED: PIPERACILLIN/TAZ 3.375G PREMIX 50 ML IV NR (17:15)
[2022-02-19] MEDS ORDERED: SODIUM CHLORIDE 0.9% 1000ML BAG (SEPSIS BOLUS) IV NR (17:15)
[2022-02-19 19:25] LABS: CLARITY URINE CLEAR (CLEAR); COLOR URINE YELLOW (YELLOW); KETONES URINE NEGATIVE (NEGATIVE); LEUKOCYTE ESTERASE URINE 1+ (NEGATIVE); NITRITE URINE NEGATIVE (NEGATIVE); OCCULT BLOOD URINE NEGATIVE (NEGATIVE); PH URINE 7.5 (4.5-8.0); PROTEIN URINE 1+ (NEGATIVE); SPECIFIC GRAVITY URINE 1.019 (1.005-1.030); UROBILINOGEN URINE 0.2 E.U./dL (0.2-1.0)
[2022-02-19] MEDS ORDERED: CLONIDINE 0.1MG TABLET PO PRN (19:45)
[2022-02-19] MEDS ORDERED: ACETAMINOPHEN 325MG TABLET PO PRN (19:45)
[2022-02-19] MEDS ORDERED: ONDANSETRON HCL 4MG/2ML INJ IV PRN (19:45)
[2022-02-19] MEDS ORDERED: GUAIFENESIN 200MG/10ML SUGAR FREE UDC PO PRN (19:45)
[2022-02-19] MEDS ORDERED: DOCUSATE SODIUM 100MG CAPSULE PO PRN (19:45)
[2022-02-19] MEDS ORDERED: IOHEXOL-300 100 ML BOTTLE ONE (20:08)
[2022-02-19] MEDS: ENOXAPARIN 40MG/0.4ML SYR SUBCUT SCH ×2 (21:00→21:14)
[2022-02-19] MEDS: HYDROCODONE/ACETAMINOPHEN 5/325MG TABLET PO PRN (21:14)
[2022-02-19] MEDS: AMLODIPINE 10MG TABLET PO SCH (21:22)
[2022-02-20] MEDS: HYDROCODONE/ACETAMINOPHEN 5/325MG TABLET PO PRN ×5 (02:25→23:42)
[2022-02-20 05:06] LABS: BASOPHILS % 0.8 % (0.0-2.0); EOSINOPHILS % 2.9 % (0.0-5.0); HEMATOCRIT. 36.4 % (42.0-52.0); HEMOGLOBIN. 11.9 g/dL (14.0-18.0); LYMPHOCYTES % 25.1 % (20.0-50.0); MEAN CORPUSCULAR HEMOGLOBIN 27.8 pg (28.0-32.0); MEAN CORPUSCULAR VOLUME 84.9 fL (80.0-94.0); MEAN PLATELET VOLUME 8.1 fl (7.4-10.4); MONOCYTES % 7.5 % (2.0-8.0); NEUTROPHILS % 63.7 % (40.0-76.0); PLATELET 156 x1000/uL (130-400); RED BLOOD CELL COUNT 4.29 mill/uL (4.7-6.1); RED CELL DISTRIBUTION WIDTH 23.4 % (11.6-14.6)
[2022-02-20 05:19] LABS: CHLORIDE 106 mEq/L (98-107)
[2022-02-20] MEDS ORDERED: SODIUM POLYSTYRENE SULFONATE 15 G/60 ML BOT PO NR (08:30)
[2022-02-20 09:15] VITALS: BP 125/80
[2022-02-20 12:00] VITALS: BP 176/87
[2022-02-20] MEDS: AMLODIPINE 10MG TABLET PO SCH (12:03)
[2022-02-20 13:10] VITALS: BP 158/75
[2022-02-20 16:00] VITALS: BP 147/68
[2022-02-20 20:00] VITALS: BP 146/73
[2022-02-20] MEDS: ENOXAPARIN 40MG/0.4ML SYR SUBCUT SCH (21:00)
[2022-02-20] MEDS: PIPERACILLIN/TAZOBACTAM 3.375 G in DEXTROSE 5% WATER 50 ML IV SCH (23:42)
[2022-02-20] MEDS: FUROSEMIDE 40MG/4ML VIAL IVP SCH (23:43)
[2022-02-21] VITALS: BP 153/70
[2022-02-21 04:00] VITALS: BP 133/75
[2022-02-21] MEDS: HYDROCODONE/ACETAMINOPHEN 5/325MG TABLET PO PRN ×5 (04:00→21:08)
[2022-02-21] MEDS: PIPERACILLIN/TAZOBACTAM 3.375 G in DEXTROSE 5% WATER 50 ML IV SCH ×3 (05:38→21:29)
[2022-02-21 07:40] LABS: HEMATOCRIT. 31.9 % (42.0-52.0); HEMOGLOBIN. 10.7 g/dL (14.0-18.0); MEAN CORPUSCULAR HEMOGLOBIN 28.1 pg (28.0-32.0); MEAN CORPUSCULAR VOLUME 84.1 fL (80.0-94.0); MEAN PLATELET VOLUME 8.8 fl (7.4-10.4); PLATELET 158 x1000/uL (130-400); RED BLOOD CELL COUNT 3.79 mill/uL (4.7-6.1)
[2022-02-21 07:46] LABS: CHLORIDE 100 mEq/L (98-107)
[2022-02-21 08:00] VITALS: BP 154/73
[2022-02-21] MEDS: AMLODIPINE 10MG TABLET PO SCH (08:10)
[2022-02-21] MEDS: FUROSEMIDE 40MG/4ML VIAL IVP SCH (08:10)
[2022-02-21] MEDS: GABAPENTIN 300MG CAPSULE PO SCH ×2 (08:10→16:28)
[2022-02-21] MEDS: TAMSULOSIN HCL 0.4MG SR CAPSULE PO SCH ×2 (08:11→16:28)
[2022-02-21] MEDS: FINASTERIDE 5MG TABLET PO SCH (08:11)
[2022-02-21 12:00] VITALS: BP 130/67
[2022-02-21 16:00] VITALS: BP 135/73
[2022-02-21] MEDS ORDERED: POTASSIUM CHLORIDE 20MEQ TABLET SR PO NR (19:41)
[2022-02-21 20:00] VITALS: BP 134/71
[2022-02-21 20:08] LABS: PLATELET ESTIMATE NORMAL
[2022-02-21] MEDS: ENOXAPARIN 40MG/0.4ML SYR SUBCUT SCH ×2 (21:00→21:08)
[2022-02-21] MEDS: ATORVASTATIN CALCIUM 10MG TABLET PO SCH (21:07)
[2022-02-21] MEDS: QUETIAPINE FUMARATE 25MG TABLET PO SCH (21:07)
[2022-02-22] VITALS: BP 122/67
[2022-02-22] MEDS: HYDROCODONE/ACETAMINOPHEN 5/325MG TABLET PO PRN ×5 (01:20→19:19)
[2022-02-22] MEDS: IPRATROPIUM/ALBUTEROL 0.5-3(2.5)MG/3ML NEB HHN SCH ×7 (01:57→23:53)
[2022-02-22 04:00] VITALS: BP 142/76
[2022-02-22] MEDS: PIPERACILLIN/TAZOBACTAM 3.375 G in DEXTROSE 5% WATER 50 ML IV SCH ×3 (05:39→21:19)
[2022-02-22 06:33] LABS: BASOPHILS % 0.6 % (0.0-2.0); HEMATOCRIT. 31.6 % (42.0-52.0); HEMOGLOBIN. 10.4 g/dL (14.0-18.0); LYMPHOCYTES % 38.9 % (20.0-50.0); MEAN CORPUSCULAR VOLUME 84.9 fL (80.0-94.0); MEAN PLATELET VOLUME 8.7 fl (7.4-10.4); MONOCYTES % 14.3 % (2.0-8.0); NEUTROPHILS % 40.2 % (40.0-76.0); PLATELET 151 x1000/uL (130-400); RED BLOOD CELL COUNT 3.73 mill/uL (4.7-6.1); RED CELL DISTRIBUTION WIDTH 22.7 % (11.6-14.6)
[2022-02-22 06:48] LABS: CHLORIDE 101 mEq/L (98-107)
[2022-02-22 08:00] VITALS: BP 125/61
[2022-02-22] MEDS: GABAPENTIN 300MG CAPSULE PO SCH ×2 (09:46→19:11)
[2022-02-22] MEDS: TAMSULOSIN HCL 0.4MG SR CAPSULE PO SCH ×2 (09:47→19:11)
[2022-02-22] MEDS: FINASTERIDE 5MG TABLET PO SCH (09:47)
[2022-02-22] MEDS: AMLODIPINE 10MG TABLET PO SCH (09:47)
[2022-02-22] MEDS: FUROSEMIDE 40MG/4ML VIAL IVP SCH (09:47)
[2022-02-22 12:00] VITALS: BP 117/62
[2022-02-22 16:00] VITALS: BP 109/62
[2022-02-22 20:00] VITALS: BP 126/63
[2022-02-22] MEDS: QUETIAPINE FUMARATE 25MG TABLET PO SCH (20:44)
[2022-02-22] MEDS: ENOXAPARIN 40MG/0.4ML SYR SUBCUT SCH ×2 (20:44→20:47)
[2022-02-22] MEDS: ATORVASTATIN CALCIUM 10MG TABLET PO SCH (20:45)
[2022-02-22] MEDS: DIPHENHYDRAMINE 25MG CAPSULE PO PRN (21:19)
[2022-02-23] VITALS: BP 108/55
[2022-02-23] MEDS: IPRATROPIUM/ALBUTEROL 0.5-3(2.5)MG/3ML NEB HHN SCH ×6 (01:03→22:12)
[2022-02-23] MEDS: HYDROCODONE/ACETAMINOPHEN 5/325MG TABLET PO PRN ×5 (03:12→21:45)
[2022-02-23 04:00] VITALS: BP 101/65
[2022-02-23] MEDS: PIPERACILLIN/TAZOBACTAM 3.375 G in DEXTROSE 5% WATER 50 ML IV SCH ×3 (05:51→21:45)
[2022-02-23 08:00] VITALS: BP 134/75
[2022-02-23] MEDS: FUROSEMIDE 40MG/4ML VIAL IVP SCH (08:53)
[2022-02-23] MEDS: TAMSULOSIN HCL 0.4MG SR CAPSULE PO SCH ×2 (08:53→17:27)
[2022-02-23] MEDS: THIAMINE HCL 100MG TABLET PO SCH (08:53)
[2022-02-23] MEDS: GABAPENTIN 300MG CAPSULE PO SCH ×2 (08:54→17:27)
[2022-02-23] MEDS: FINASTERIDE 5MG TABLET PO SCH (08:54)
[2022-02-23] MEDS: AMLODIPINE 10MG TABLET PO SCH (08:54)
[2022-02-23] MEDS: FOLIC ACID 1MG TABLET PO SCH (08:54)
[2022-02-23 12:00] VITALS: BP 116/63
[2022-02-23 16:00] VITALS: BP 134/78
[2022-02-23 20:00] VITALS: BP 144/72
[2022-02-23] MEDS: ENOXAPARIN 40MG/0.4ML SYR SUBCUT SCH (21:00)
[2022-02-23] MEDS: ATORVASTATIN CALCIUM 10MG TABLET PO SCH (21:44)
[2022-02-23] MEDS: QUETIAPINE FUMARATE 25MG TABLET PO SCH (21:44)
[2022-02-23] MEDS: DIPHENHYDRAMINE 25MG CAPSULE PO PRN (22:00)
[2022-02-24] VITALS: BP 134/68
[2022-02-24 03:56] VITALS: BP 144/81
[2022-02-24] MEDS: HYDROCODONE/ACETAMINOPHEN 5/325MG TABLET PO PRN ×4 (04:15→19:42)
[2022-02-24] MEDS: PIPERACILLIN/TAZOBACTAM 3.375 G in DEXTROSE 5% WATER 50 ML IV SCH ×3 (06:48→22:55)
[2022-02-24 08:00] VITALS: BP 141/75
[2022-02-24 08:14] LABS: FOLIC ACID (FOLATE) SERUM 11.4 ng/mL (>5.38)
[2022-02-24] MEDS: FUROSEMIDE 40MG/4ML VIAL IVP SCH (08:34)
[2022-02-24] MEDS: FINASTERIDE 5MG TABLET PO SCH (08:34)
[2022-02-24] MEDS: TAMSULOSIN HCL 0.4MG SR CAPSULE PO SCH ×2 (08:35→18:31)
[2022-02-24] MEDS: FOLIC ACID 1MG TABLET PO SCH (08:35)
[2022-02-24] MEDS: AMLODIPINE 10MG TABLET PO SCH (08:35)
[2022-02-24] MEDS: THIAMINE HCL 100MG TABLET PO SCH (08:35)
[2022-02-24] MEDS: GABAPENTIN 300MG CAPSULE PO SCH ×2 (08:35→18:31)
[2022-02-24] MEDS: IPRATROPIUM/ALBUTEROL 0.5-3(2.5)MG/3ML NEB HHN SCH ×4 (08:49→21:45)
[2022-02-24] MEDS: POLYETHYLENE GLYCOL 3350 (17GM) 1 DOSE PACK PO SCH ×2 (10:30→12:13)
[2022-02-24] MEDS ORDERED: CYANOCOBALAMIN 1000MCG/ML VIAL IM NR (11:00)
[2022-02-24 12:00] VITALS: BP 125/60
[2022-02-24] MEDS: FERROUS SULFATE 325MG TABLET PO SCH ×2 (12:13→18:32)
[2022-02-24 16:00] VITALS: BP 134/62
[2022-02-24] MEDS ORDERED: NALOXONE HCL 0.4MG/ML VIAL IV PRN (16:30)
[2022-02-24 20:35] VITALS: BP 151/73
[2022-02-24] MEDS: ENOXAPARIN 40MG/0.4ML SYR SUBCUT SCH (21:00)
[2022-02-24] MEDS: QUETIAPINE FUMARATE 25MG TABLET PO SCH (21:08)
[2022-02-24] MEDS: DIPHENHYDRAMINE 25MG CAPSULE PO PRN (21:08)
[2022-02-24] MEDS: ATORVASTATIN CALCIUM 10MG TABLET PO SCH (21:08)
[2022-02-25] VITALS (7 sets, daily range): BP systolic 117–157; BP diastolic 65–82
[2022-02-25] MEDS: IPRATROPIUM/ALBUTEROL 0.5-3(2.5)MG/3ML NEB HHN SCH ×4 (01:11→12:00)
[2022-02-25] MEDS: HYDROCODONE/ACETAMINOPHEN 5/325MG TABLET PO PRN ×4 (05:40→17:50)
[2022-02-25] MEDS: FERROUS SULFATE 325MG TABLET PO SCH ×3 (06:28→17:49)
[2022-02-25] MEDS: PIPERACILLIN/TAZOBACTAM 3.375 G in DEXTROSE 5% WATER 50 ML IV SCH ×2 (06:29→13:43)
[2022-02-25] MEDS: POLYETHYLENE GLYCOL 3350 (17GM) 1 DOSE PACK PO SCH ×2 (09:00→09:29)
[2022-02-25] MEDS ORDERED: ASCORBIC ACID 500 MG TABLET PO SCH (09:00)
[2022-02-25] MEDS: FINASTERIDE 5MG TABLET PO SCH (09:28)
[2022-02-25] MEDS: AMLODIPINE 10MG TABLET PO SCH (09:28)
[2022-02-25] MEDS: FOLIC ACID 1MG TABLET PO SCH (09:28)
[2022-02-25] MEDS: THIAMINE HCL 100MG TABLET PO SCH (09:29)
[2022-02-25] MEDS: GABAPENTIN 300MG CAPSULE PO SCH ×2 (09:29→17:50)
[2022-02-25] MEDS: TAMSULOSIN HCL 0.4MG SR CAPSULE PO SCH ×2 (09:29→17:50)
[2022-02-25] MEDS: FUROSEMIDE 40MG/4ML VIAL IVP SCH (09:35)
[2022-03-01 17:06] LABS: 25-HYDROXY VITAMIN D3 7.9 ng/mL (.)
== END 2022-02-25 17:00 | DRG 394 ==
LOC: ER 15:50 → EDBEDREQ 16:10 → EDBEDREQTM 19:16 → MICUSO 19:40 → EDBEDREQ 19:51 → EDBEDREQTM 19:51 → 7EST 02-20 09:26
PROVIDERS: ADMIT Internal Medicine; ATTEND Internal Medicine
DX: K62.89 Other specified diseases of anus and rectum (principal); N39.0 Urinary tract infection, site not specified; K86.1 Other chronic pancreatitis; D64.9 Anemia, unspecified; R62.7 Adult failure to thrive; F17.200 Nicotine dependence, unspecified, uncomplicated; I11.0 Hypertensive heart disease with heart failure; F10.20 Alcohol dependence, uncomplicated; Y90.9 Presence of alcohol in blood, level not specified; I50.9 Heart failure, unspecified; E78.5 Hyperlipidemia, unspecified; N40.0 Benign prostatic hyperplasia without lower urinary tract symptoms; Z20.822 Contact with and (suspected) exposure to COVID-19; E11.40 Type 2 diabetes mellitus with diabetic neuropathy, unspecified; J44.9 Chronic obstructive pulmonary disease, unspecified; D72.819 Decreased white blood cell count, unspecified; R26.9 Unspecified abnormalities of gait and mobility; R19.7 Diarrhea, unspecified; E61.1 Iron deficiency; Z59.02 Unsheltered homelessness; Z79.899 Other long term (current) drug therapy; Z82.49 Family history of ischemic heart disease and other diseases of the circulatory system
CPT/HCPCS: 36415; 71045; 74177; 80048; 80053; 81003; 82306; 82607; 82728; 82746; 82962; 83036; 83540; 83550; 83605; 83880; 84145; 84443; 84484; 85025; 87426; 93306; 93970; 94640; 97162; 99291; C1893; J1650; J1940; J2543; J3420; J7030; J7060; Q0163; Q9967

== ENCOUNTER 2022-09-05 09:15 | Emergency (ER) | payer MEDICARE, MEDICAID ==
[~2022-09-05] VITALS: Ht 185.4 cm; Wt 89.0 kg
[~2022-09-05 09:15] MED LIST changes: +POTA-205 PO; -POTA20TA82 PO
[2022-09-05] MEDS ORDERED: METHYLPREDNISOLONE SOD SUCC 125 MG/2 ML VIAL IV STA (09:38)
[2022-09-05] MEDS ORDERED: ALBUTEROL (0.083%) 2.5MG/3ML NEB HHN STA (09:38)
[2022-09-05] MEDS ORDERED: IPRATROPIUM BROMIDE (0.02%) 0.5MG/2.5ML NEB HHN STA (09:38)
[2022-09-05 09:45] VITALS: BP 163/101
[2022-09-05] MEDS ORDERED: PREDNISONE 20MG TABLET PO STA (09:52)
[2022-09-05] MEDS ORDERED: P50 PO (10:34)
[2022-09-05] MEDS ORDERED: ALBU6.7H3 INH (10:34)
[2022-09-05] MEDS ORDERED: ALBU05 NEB (10:34)
== END 2022-09-05 11:36 | disposition home or self-care (01) ==
LOC: ER 09:15
DX: J44.9 Chronic obstructive pulmonary disease, unspecified (principal); F17.210 Nicotine dependence, cigarettes, uncomplicated; I11.0 Hypertensive heart disease with heart failure; I50.9 Heart failure, unspecified; E11.9 Type 2 diabetes mellitus without complications; R94.31 Abnormal electrocardiogram [ECG] [EKG]
CPT/HCPCS: 71045; 93005; 94644; 99285; J7512

== ENCOUNTER 2022-09-10 21:27 | Inpatient (IN) | payer MEDICARE, MEDICAID ==
[~2022-09-10] VITALS: Ht 180.3 cm; Wt 79.0 kg
[~2022-09-10 21:27] MED LIST changes: +ALBU05 NEB; +ALBU6.7H3 INH; +P50 PO
[2022-09-10] MEDS ORDERED: ALBUTEROL (0.083%) 2.5MG/3ML NEB HHN STA ×2 (22:46→23:22)
[2022-09-10] MEDS ORDERED: IPRATROPIUM BROMIDE (0.02%) 0.5MG/2.5ML NEB HHN STA ×2 (22:46→23:22)
[2022-09-10 22:48] LABS: CHLORIDE 98 mEq/L (98-107)
[2022-09-10 22:49] LABS: BASOPHILS % 0.1 % (0.0-2.0); EOSINOPHILS % 0.3 % (0.0-5.0); HEMATOCRIT. 37.4 % (42.0-52.0); HEMOGLOBIN. 12.1 g/dL (14.0-18.0); LYMPHOCYTES % 30.1 % (20.0-50.0); MEAN CORPUSCULAR VOLUME 80.4 fL (80.0-94.0); MEAN PLATELET VOLUME 9.1 fl (7.4-10.4); MONOCYTES % 8.4 % (2.0-8.0); NEUTROPHILS % 61.1 % (40.0-76.0); PLATELET 151 x1000/uL (130-400); RED BLOOD CELL COUNT 4.65 mill/uL (4.7-6.1); RED CELL DISTRIBUTION WIDTH 17.2 % (11.6-14.6)
[2022-09-10 22:50] LABS: PROTHROMBIN TIME 10.9 sec (9.6-11.0)
[2022-09-10] MEDS ORDERED: MAGNESIUM 2 G PREMIX 50 ML IV STA (23:03)
[2022-09-10] MEDS ORDERED: METHYLPREDNISOLONE SOD SUCC 125 MG/2 ML VIAL IV STA (23:03)
[2022-09-11] VITALS: BP 169/99
[2022-09-11 01:15] LABS: CLARITY URINE CLEAR (CLEAR); COLOR URINE YELLOW (YELLOW); KETONES URINE NEGATIVE (NEGATIVE); LEUKOCYTE ESTERASE URINE TRACE (NEGATIVE); NITRITE URINE NEGATIVE (NEGATIVE); OCCULT BLOOD URINE TRACE (NEGATIVE); PROTEIN URINE 3+ (NEGATIVE)
[2022-09-11] MEDS ORDERED: IPRATROPIUM BROMIDE (0.02%) 0.5MG/2.5ML NEB HHN STA (03:38)
[2022-09-11] MEDS: ALBUTEROL (0.083%) 2.5MG/3ML NEB HHN SCH ×3 (04:02→05:00)
== END 2022-09-11 05:48 | disposition left against medical advice (07) | DRG 189 ==
LOC: ER 21:27 → MICUSO 09-11 00:58 → 6WST 09-11 05:20
PROVIDERS: ADMIT Internal Medicine; ATTEND Internal Medicine
DX: J96.01 Acute respiratory failure with hypoxia (principal); J44.1 Chronic obstructive pulmonary disease with (acute) exacerbation; I11.0 Hypertensive heart disease with heart failure; I50.9 Heart failure, unspecified; E11.9 Type 2 diabetes mellitus without complications; F10.20 Alcohol dependence, uncomplicated; Z20.822 Contact with and (suspected) exposure to COVID-19; Z53.29 Procedure and treatment not carried out because of patient's decision for other reasons; Z88.8 Allergy status to other drugs, medicaments and biological substances; Z79.899 Other long term (current) drug therapy
CPT/HCPCS: 36415; 71045; 80053; 81003; 83605; 84145; 84484; 85025; 87426; 87804; 93005; 94640; 99285; C9803; J2930; J3475

== ENCOUNTER 2024-06-10 04:50 | Emergency (ER) | payer MEDICARE, MEDICAID ==
[~2024-06-10] VITALS: Ht 180.3 cm; Wt 77.0 kg
[~2024-06-10 04:50] MED LIST changes: -ALBU90AE IH; +DULO30CA52 PO; +GABA-529 PO; -GABA-532 PO; +HYDR25TA78 PO; +OXYC20TA41 PO; +POTA-204 PO; -POTA-205 PO
[2024-06-10] MEDS ORDERED: METHYLPREDNISOLONE SOD SUCC 125MG/2ML (ACT-O-VIAL) IV STA (05:37)
[2024-06-10 05:55] LABS: HEMATOCRIT. 42.7 % (42.0-52.0); HEMOGLOBIN. 13.7 g/dL (14.0-18.0); MEAN CORPUSCULAR HEMOGLOBIN 27.5 pg (28.0-32.0); MEAN CORPUSCULAR VOLUME 85.9 fL (80.0-94.0); MEAN PLATELET VOLUME 8.6 fl (7.4-10.4); PLATELET 158 x1000/uL (130-400); RED BLOOD CELL COUNT 4.97 mill/uL (4.7-6.1); RED CELL DISTRIBUTION WIDTH 22.1 % (11.6-14.6); WHITE BLOOD COUNT 4.2 x1000/uL (4.5-11.0)
[2024-06-10] MEDS: IPRATROPIUM BROMIDE (0.02%) 0.5MG/2.5ML NEB HHN STA (05:56)
[2024-06-10] MEDS: ALBUTEROL (0.083%) 2.5MG/3ML NEB HHN STA (05:56)
[2024-06-10 06:00] LABS: CHLORIDE 105 mEq/L (98-107); POTASSIUM 3.4 mEq/L (3.5-5.1); SODIUM 135 mEq/L (136-145)
[2024-06-10 06:01] LABS: CALCIUM 8.4 mg/dL (8.7-10.4); CARBON DIOXIDE 24 mEq/L (21-32); DIFFERENTIAL COMMENT 1
[2024-06-10 06:05] VITALS: PULSE 74; RESP 20; O2SAT 94
[2024-06-10 06:06] LABS: CREATININE 1.2 mg/dL (0.6-1.3); GLUCOSE 99 mg/dL (70-105); UREA NITROGEN BLOOD 14 mg/dL (9-23)
[2024-06-10 06:07] LABS: TROPONIN I HIGH SENSITIVITY 16 ng/L (3.0-53)
[2024-06-10 07:17] LABS: PLATELET ESTIMATE NORMAL
[2024-06-10 08:06] VITALS: BP 187/72; PULSE 86; RESP 14; TEMP 97.9
[2024-06-10] MEDS ORDERED: ALBU6.7H15 INH (08:12)
== END 2024-06-10 08:25 | disposition left against medical advice (07) ==
LOC: ER 04:50 → EDBEDREQ 06:53 → EDBEDREQTM 06:53 → ER 08:25 → CANBEDREQ 08:37
DX: J44.1 Chronic obstructive pulmonary disease with (acute) exacerbation (principal); I11.0 Hypertensive heart disease with heart failure; I50.9 Heart failure, unspecified; F10.20 Alcohol dependence, uncomplicated; E11.9 Type 2 diabetes mellitus without complications; Z79.899 Other long term (current) drug therapy
CPT/HCPCS: 36415; 71045; 80048; 84484; 85025; 93005; 94644; 99285; J2919

== ENCOUNTER 2024-08-18 08:00 | Inpatient (IN) | payer MEDICARE, MEDICAID ==
[~2024-08-18] VITALS: Ht 180.3 cm; Wt 78.0 kg
[~2024-08-18 08:00] MED LIST changes: +ALBU6.7H15 INH
[2024-08-18 08:30] LABS: BASOPHILS % 0.2 % (0.0-2.0); EOSINOPHILS % 1.1 % (0.0-5.0); HEMATOCRIT. 33.3 % (42.0-52.0); HEMOGLOBIN. 10.7 g/dL (14.0-18.0); LYMPHOCYTES % 7.6 % (20.0-50.0); MEAN CORPUSCULAR HEMOGLOBIN 29.5 pg (28.0-32.0); MEAN CORPUSCULAR HGB CONC 32.2 g/dL (31.0-37.0); MEAN CORPUSCULAR VOLUME 91.6 fL (80.0-94.0); MEAN PLATELET VOLUME 7.8 fl (7.4-10.4); MONOCYTES % 12.2 % (2.0-8.0); NEUTROPHILS % 78.9 % (40.0-76.0); PLATELET 246 x1000/uL (130-400); RED BLOOD CELL COUNT 3.63 mill/uL (4.7-6.1); RED CELL DISTRIBUTION WIDTH 16.8 % (11.6-14.6); WHITE BLOOD COUNT 15.8 x1000/uL (4.5-11.0)
[2024-08-18 08:35] VITALS: PULSE 112; RESP 24
[2024-08-18 08:35] LABS: CHLORIDE 99 mEq/L (98-107); POTASSIUM 4.1 mEq/L (3.5-5.1); SODIUM 133 mEq/L (136-145)
[2024-08-18] MEDS: ALBUTEROL (0.083%) 2.5MG/3ML NEB HHN STA (08:35)
[2024-08-18] MEDS: IPRATROPIUM BROMIDE (0.02%) 0.5MG/2.5ML NEB HHN STA (08:35)
[2024-08-18 08:36] LABS: CALCIUM 8.5 mg/dL (8.7-10.4); CARBON DIOXIDE 31 mEq/L (21-32)
[2024-08-18 08:41] LABS: CREATININE 0.8 mg/dL (0.6-1.3); GLUCOSE 131 mg/dL (70-105); UREA NITROGEN BLOOD 12 mg/dL (9-23)
[2024-08-18 08:42] LABS: TROPONIN I HIGH SENSITIVITY 11 ng/L (3.0-53)
[2024-08-18 10:45] LABS: TROPONIN I HIGH SENSITIVITY 14 ng/L (3.0-53)
[2024-08-18] MEDS: CEFTRIAXONE 2GM/50ML 50 ML IV ONE (16:01)
[2024-08-18] MEDS: METHYLPREDNISOLONE SOD SUCC 125MG/2ML (ACT-O-VIAL) IV STA (16:01)
[2024-08-18] MEDS: AZITHROMYCIN 500MG/250ML 250 ML IV ONE (16:31)
[2024-08-18] MEDS ORDERED: ONDANSETRON HCL 4MG/2ML INJ IV PRN (16:45)
[2024-08-18] MEDS ORDERED: NALOXONE HCL 0.4MG/ML VIAL IV PRN (18:00)
[2024-08-18] MEDS: FUROSEMIDE 40MG/4ML VIAL IVP SCH (18:37)
[2024-08-18] MEDS: HYDROCODONE/ACETAMINOPHEN 10/325MG TABLET PO PRN (18:54)
[2024-08-18] MEDS: HYDRALAZINE HCL 25MG TABLET PO SCH (18:55)
[2024-08-18] MEDS: GABAPENTIN 100MG CAPSULE PO SCH (18:55)
[2024-08-18] MEDS: POTASSIUM CHLORIDE 20MEQ/PACKET PO NR (18:56)
[2024-08-18] MEDS: TAMSULOSIN HCL 0.4MG SR CAPSULE PO SCH (21:05)
[2024-08-18] MEDS: ATORVASTATIN CALCIUM 10MG TABLET PO SCH (21:07)
[2024-08-18 21:15] VITALS: BP 101/68; PULSE 71; RESP 18; TEMP 37.05852; O2SAT 94
[2024-08-18 22:46] VITALS: BP 154/82; PULSE 74; RESP 20; TEMP 36.3624
[2024-08-19] VITALS (7 sets, daily range): BP systolic 116–151; BP diastolic 67–80; PULSE 65–78; RESP 18–21; TEMP 36.00288–37.00296; O2SAT 96–98
[2024-08-19 01:54] LABS: CREATINE KINASE MB FRACTION 0.9 ng/mL (0.5-3.6)
[2024-08-19 02:49] LABS: CLARITY URINE CLEAR (CLEAR); COLOR URINE YELLOW (YELLOW); GLUCOSE URINE NEGATIVE (NEGATIVE); KETONES URINE NEGATIVE (NEGATIVE); LEUKOCYTE ESTERASE URINE NEGATIVE (NEGATIVE); NITRITE URINE NEGATIVE (NEGATIVE); OCCULT BLOOD URINE NEGATIVE (NEGATIVE); PROTEIN URINE 1+ (NEGATIVE); SPECIFIC GRAVITY URINE 1.006 (1.005-1.030); UROBILINOGEN URINE 0.2 E.U./dL (0.2-1.0)
[2024-08-19 02:59] LABS: RBC URINE 0-2 /hpf (0-2); SQUAMOUS EPITHELIAL CELL URINE NONE SEEN /lpf (RARE/1+); WBC URINE 0-2 /hpf (0-2)
[2024-08-19 03:00] LABS: BACTERIA URINE 1+
[2024-08-19 03:24] LABS: *AMPHETAMINES SCREEN URINE NEGATIVE (NEGATIVE); *BENZODIAZEPINES SCREEN URINE NEGATIVE (NEGATIVE)
[2024-08-19 03:25] LABS: *BARBITURATES SCREEN URINE NEGATIVE (NEGATIVE); *COCAINE SCREEN URINE NEGATIVE (NEGATIVE); CANNABINOID URINE SCREEN NEGATIVE (NEGATIVE); ECSTASY MDMA SCREEN URINE NEGATIVE (NEGATIVE); METHADONE URINE SCREEN NEGATIVE (NEGATIVE); OPIATES URINE SCREEN PRESUMPTIVE POSITIVE (NEGATIVE); PHENCYCLIDINE URINE SCREEN NEGATIVE (NEGATIVE)
[2024-08-19 07:42] LABS: HEMATOCRIT. 36.1 % (42.0-52.0); HEMOGLOBIN. 11.8 g/dL (14.0-18.0); MEAN CORPUSCULAR HEMOGLOBIN 29.8 pg (28.0-32.0); MEAN CORPUSCULAR HGB CONC 32.7 g/dL (31.0-37.0); MEAN CORPUSCULAR VOLUME 91.4 fL (80.0-94.0); RED BLOOD CELL COUNT 3.95 mill/uL (4.7-6.1); RED CELL DISTRIBUTION WIDTH 16.3 % (11.6-14.6)
[2024-08-19 07:47] LABS: CHLORIDE 97 mEq/L (98-107); POTASSIUM 4.2 mEq/L (3.5-5.1); SODIUM 133 mEq/L (136-145)
[2024-08-19 07:48] LABS: CALCIUM 8.7 mg/dL (8.7-10.4); CARBON DIOXIDE 29 mEq/L (21-32)
[2024-08-19 07:53] LABS: CREATINE KINASE MB FRACTION 1.9 ng/mL (0.5-3.6); CREATININE 0.8 mg/dL (0.6-1.3); GLUCOSE 164 mg/dL (70-105); TROPONIN I HIGH SENSITIVITY 6 ng/L (3.0-53); UREA NITROGEN BLOOD 14 mg/dL (9-23)
[2024-08-19 07:55] LABS: CREATINE KINASE 39 IU/L (46-171)
[2024-08-19] MEDS ORDERED: CEFTRIAXONE 1GM/50ML 50 ML IV SCH (08:00)
[2024-08-19 08:20] LABS: DIFFERENTIAL COMMENT 1
[2024-08-19] MEDS: AZITHROMYCIN 500MG/250ML 250 ML IV SCH (08:26)
[2024-08-19] MEDS: CEFTRIAXONE 1GM/50ML 50 ML IV SCH (08:26)
[2024-08-19] MEDS: FINASTERIDE 5MG TABLET PO SCH (08:26)
[2024-08-19] MEDS: DULOXETINE HCL 30MG DR CAPSULE PO SCH (08:26)
[2024-08-19] MEDS ORDERED: AZITHROMYCIN 500MG/250ML 250 ML IV SCH (09:00)
[2024-08-19] MEDS: IPRATROPIUM/ALBUTEROL 0.5-3(2.5)MG/3ML NEB NEB PRN (09:08)
[2024-08-19 11:39] LABS: ANISOCYTOSIS 1+
[2024-08-19 11:43] LABS: PLATELET ESTIMATE NORMAL
[2024-08-19 11:44] LABS: MEAN PLATELET VOLUME 9.3 fl (7.4-10.4); PLATELET 247 x1000/uL (130-400)
[2024-08-19 14:52] LABS: BG BASE EXCESS 5.8 mmol/L (-2.0-3.0); BG CARBOXYHEMOGLOBIN 0.3 % (0.5-1.5); BG DEOXYHEMOGLOBIN 7.5 % (0.0-5.0); BG FRACTION INSPIRED OXYGEN 21; BG METHEMOGLOBIN 0.3 % (0.5-1.5); BG OXYGEN SATURATION 92.5 % (94.0-98.0); BG OXYHEMOGLOBIN 91.9 % (94.0-98.0); BG PCO2 47.6 mmHg (35.0-48.0); BG PH 7.431 (7.350-7.450); BG PO2 62.8 mmHg (83.0-108.0); BG SAMPLE SITE RIGHT RADIAL; BG TOTAL HEMOGLOBIN 11.4 g/dL (13.5-17.5); BG VENT MODE ROOM AIR
[2024-08-19] MEDS: PIPERACILLIN/TAZO 3.375G/50ML 50 ML IV SCH (21:06)
[2024-08-19] MEDS: ZOLPIDEM TARTRATE 5MG TABLET PO PRN (22:29)
[2024-08-20] VITALS (7 sets, daily range): BP systolic 110–166; BP diastolic 57–86; PULSE 65–83; RESP 18–22; TEMP 36.00288–36.6696; O2SAT 93–99
[2024-08-20] MEDS: ACETAMINOPHEN 325MG TABLET PO PRN (05:18)
[2024-08-20] MEDS ORDERED: BUDESONIDE 0.5MG/2ML NEB HHN SCH (07:00)
[2024-08-20] MEDS: FLUTICASONE PROPIONATE 50MCG/SPRAY BOTTLE BOTHNSTRLS SCH (08:58)
[2024-08-20] MEDS ORDERED: IPRATROPIUM/ALBUTEROL 0.5-3(2.5)MG/3ML NEB HHN SCH (12:00)
[2024-08-20] MEDS: LACTULOSE 20G/30ML UDC PO SCH (13:11)
[2024-08-20 18:13] LABS: CHLORIDE 98 mEq/L (98-107); POTASSIUM 4.4 mEq/L (3.5-5.1); SODIUM 132 mEq/L (136-145)
[2024-08-20 18:14] LABS: CALCIUM 8.6 mg/dL (8.7-10.4); CARBON DIOXIDE 30 mEq/L (21-32)
[2024-08-20 18:19] LABS: CREATININE 0.9 mg/dL (0.6-1.3); GLUCOSE 128 mg/dL (70-105); UREA NITROGEN BLOOD 20 mg/dL (9-23)
[2024-08-20 18:21] LABS: PHOSPHORUS 2.9 mg/dL (2.5-4.9)
[2024-08-20] MEDS: NA PHOS,M-B/NA PHOS,DI-BA ENEMA 118ML PR NR (18:59)
[2024-08-20] MEDS: METHYLPREDNISOLONE SOD SUCC 40MG/ML (ACT-O-VIAL) IV SCH (18:59)
[2024-08-20] MEDS: CLONIDINE 0.1MG TABLET PO PRN (20:50)
[2024-08-20 21:07] LABS: BASOPHILS % 0.2 % (0.0-2.0); EOSINOPHILS % 1.1 % (0.0-5.0); HEMATOCRIT. 35.8 % (42.0-52.0); HEMOGLOBIN. 11.2 g/dL (14.0-18.0); LYMPHOCYTES % 7.8 % (20.0-50.0); MEAN CORPUSCULAR HEMOGLOBIN 28.8 pg (28.0-32.0); MEAN CORPUSCULAR HGB CONC 31.4 g/dL (31.0-37.0); MEAN CORPUSCULAR VOLUME 91.8 fL (80.0-94.0); MEAN PLATELET VOLUME 8.2 fl (7.4-10.4); MONOCYTES % 7.3 % (2.0-8.0); NEUTROPHILS % 83.6 % (40.0-76.0); PLATELET 314 x1000/uL (130-400); RED CELL DISTRIBUTION WIDTH 16.2 % (11.6-14.6); WHITE BLOOD COUNT 15.8 x1000/uL (4.5-11.0)
[2024-08-21] VITALS (9 sets, daily range): BP systolic 110–144; BP diastolic 59–80; PULSE 65–74; RESP 18–20; TEMP 36.44736–36.78072; O2SAT 90–98
[2024-08-21] MEDS ORDERED: IPRATROPIUM/ALBUTEROL 0.5-3(2.5)MG/3ML NEB NEB PRN (08:30)
[2024-08-21] MEDS: GUAIFENESIN 600MG ER TABLET PO SCH (08:58)
[2024-08-21] MEDS: IPRATROPIUM/ALBUTEROL 0.5-3(2.5)MG/3ML NEB HHN SCH (09:08)
[2024-08-22] VITALS (12 sets, daily range): BP systolic 130–159; BP diastolic 59–79; PULSE 60–78; RESP 16–20; TEMP 36.28068–36.72516; O2SAT 93–100
[2024-08-22 10:35] LABS: HEMATOCRIT 33.2 % (42.0-52.0); HEMOGLOBIN 10.5 g/dL (14.0-18.0); MEAN CORPUSCULAR HEMOGLOBIN 28.8 pg (28.0-32.0); MEAN CORPUSCULAR HGB CONC 31.6 g/dL (31.0-37.0); MEAN CORPUSCULAR VOLUME 91.1 fL (80.0-94.0); PLATELET 287 x1000/uL (130-400); RED BLOOD CELL COUNT 3.64 mill/uL (4.7-6.1); RED CELL DISTRIBUTION WIDTH 16.9 % (11.6-14.6); WHITE BLOOD COUNT 10.1 x1000/uL (4.5-11.0)
[2024-08-22 10:44] LABS: CHLORIDE 97 mEq/L (98-107); POTASSIUM 4.4 mEq/L (3.5-5.1); SODIUM 135 mEq/L (136-145)
[2024-08-22 10:45] LABS: CARBON DIOXIDE 32 mEq/L (21-32)
[2024-08-22 10:46] LABS: CALCIUM 8.5 mg/dL (8.7-10.4)
[2024-08-22 10:50] LABS: GLUCOSE 234 mg/dL (70-105); UREA NITROGEN BLOOD 26 mg/dL (9-23)
[2024-08-22] MEDS: SUCRALFATE 1G TABLET PO SCH (17:23)
[2024-08-23] VITALS (11 sets, daily range): BP systolic 117–167; BP diastolic 64–79; PULSE 60–70; RESP 16–18; TEMP 36.33624–37.00296; O2SAT 92–98
[2024-08-23] MEDS: ZOLPIDEM TARTRATE 5MG TABLET PO PRN (22:11)
[2024-08-23] MEDS: HYDROCODONE/ACETAMINOPHEN 5/325MG TABLET PO PRN (22:12)
[2024-08-24] VITALS (9 sets, daily range): BP systolic 128–158; BP diastolic 68–85; PULSE 62–81; RESP 18–20; TEMP 36.114–36.55848; O2SAT 94–99
== END 2024-08-24 17:50 | DRG 871 ==
LOC: ER 08:00 → 5WST 10:26 → EDBEDREQTM 10:29 → EDBEDREQ 10:29 → 8WST 21:45
PROVIDERS: ADMIT Internal Medicine; ATTEND Internal Medicine
PROC: 02HV33Z Insertion of Infusion Device into Superior Vena Cava, Percutaneous Approach (ICD-10-PCS; principal; 2024-08-18)
PROC: B548ZZA Ultrasonography of Superior Vena Cava, Guidance (ICD-10-PCS; 2024-08-18)
DX: A41.9 Sepsis, unspecified organism (principal); I50.33 Acute on chronic diastolic (congestive) heart failure; J96.01 Acute respiratory failure with hypoxia; J69.0 Pneumonitis due to inhalation of food and vomit; I11.0 Hypertensive heart disease with heart failure; E11.9 Type 2 diabetes mellitus without complications; E78.5 Hyperlipidemia, unspecified; F10.20 Alcohol dependence, uncomplicated; N40.0 Benign prostatic hyperplasia without lower urinary tract symptoms; F17.210 Nicotine dependence, cigarettes, uncomplicated; J44.89 Other specified chronic obstructive pulmonary disease; Z79.4 Long term (current) use of insulin; Z79.899 Other long term (current) drug therapy
CPT/HCPCS: 36415; 36573; 36600; 71045; 80048; 80305; 81003; 82375; 82550; 82553; 82805; 83735; 83880; 84100; 84145; 84484; 85025; 85027; 87426; 87804; 94640; 99291; C1725; J0456; J0696; J1940; J2543; J2919; J2920